=== PATIENT | female | born 2000 | race Caucasian/White ===

== ENCOUNTER 2022-01-20 10:32 | Emergency (ER) | payer OTHER, SELFPAY ==
[2022-01-20 11:13] VITALS: BP 124/81; PULSE 79; RESP 17; TEMP 36.6; O2SAT 99; BMI 20.9
--- NOTE | 2022-01-20 13:32 | ED.NECK ---
HPI - Neck Pain/Injury General Chief Complaint: Neck Pain/Injury Stated Complaint: passed out and hit head /neck is super stiff Time Seen by Provider: 01/20/22 13:32 Mode of arrival: Ambulatory History of Present Illness HPI Narrative: This is a healthy 21-year-old female who states she is had multiple syncopal episodes after seeing needles in the past. She was changing out her belly button ring and when she was watching to do the point he metal end looked like a needle and made her feel like she needed to pass out. She laid down flat she thought all of her symptoms had resolved she stood up quickly and then passed out. Patient states she hit the left side of her neck on the hard bed frame of her [employer] bed. She states otherwise she is felt fine since then this occurred last night but she is had persistent pain in on the left side into her region. Patient has not had any more syncopal episodes. No numbness, tingling or weakness, no midline pain, she is increased pain particularly rotation to the left less so to the right. Denies any weakness in extremities. No loss of bowel or bladder control. No fevers, no chest pain, no shortness of breath, no nausea or vomiting. She felt a little dizzy afterwards. She denies medical issues otherwise, no daily medications. Allergic to amoxicillin. Related Data Home Medications Medication Instructions Recorded Confirmed No Known Home Medications 01/20/22 01/20/22 Allergies Allergy/AdvReac Type Severity Reaction Status Date / Time amoxicillin Allergy Verified 01/20/22 11:16 Review of Systems Review of Systems ROS Unobtainable: All systems reviewed & are unremarkable except as noted in HPI and below Patient History Social History Smoking Status: Never smoker Smoking Status: Never smoker alcohol intake frequency: other Substance Use Type: does not use Exam Narrative Exam Narrative: GEN: Patient appears in mild distress. HEAD: No evidence of trauma, no raccoon/Rowe sign. NECK: Nontender, painless range of motion, trachea midline Negative Nexus criteria, there is no midline line tenderness, distracting injury, altered mental status, neuro deficit, recent EtOH. EYES: PERRLA, EOMI ENT: External inspection normal, trachea is midline, no hemotypanum, Nares are clear, no septal hematoma, no dental or oral injury, airway is normal and with normal occlusion, No bony tenderness RESP: Chest is nontender and has symmetric movement, no ecchymosis, breath sounds are normal no crackles, wheezes or rales CVS: Heart sounds are normal, no murmur noted, No JVD. ABG/GI: Nontender, soft, normal bowel sounds, no distention, no organomegaly, pelvic rock is negative NEURO: Oriented AOx3, neuro is grossly intact, sensation and motor is normal all 4 extremities moving, cranial nerves II through XII are intact, GCS is 15 PSYCH: Normal mood and affect SKIN: Intact, warm and dry, no crepitus and without decubitus BACK: No CVA tenderness, no vertebral tenderness, no step-off's, no crepitus, patient has some mild tenderness the lateral paraspinal muscle trapezius, she is slightly decreased range of motion on the left but is able to turn her to 45?, she can use on the right. EXT: Atraumatic, hips are nontender, no pedal edema, normal color and temperature, normal range of motion of extremities with normal tendon exam, 2+ pulses in all four extremities Initial Vital Signs Initial Vital Signs: Vital Signs Temperature 97.9 F 01/20/22 11:13 Pulse Rate 79 01/20/22 11:13 Respiratory Rate 17 01/20/22 11:13 Blood Pressure 124/81 01/20/22 11:13 Pulse Oximetry 99 01/20/22 11:13 Oxygen Delivery Method 01/20/22 11:13 Course Orders Ordered: ED Orders 01/20/22 11:33 EKG-12 Lead Stat Vital Signs Vital signs: Vital Signs - 8 hr 01/20/22 11:13 Temperature 97.9 F Pulse Rate 79 Respiratory Rate 17 Blood Pressure 124/81 Pulse Oximetry 99 Oxygen Delivery Method Room Air MDM - Neck Pain/Injury ECG Data Attestation: I personally reviewed and interpreted this ECG as follows: Prior ECG tracings: not available for review Interpretation: Sinus rhythm sinus arrhythmia, inverted T-wave in 3 and AVF. No elevation, rate of 86 CA 150 QRS is 74 QTC of 426. MDM Narrative Medical decision making narrative: This is a 21-year-old female who had syncopal episode after seeing what looked to her like a needle while changing out her belly button piercing she is had this happen multiple times in the past. EKG showed possible T-wave inversion in 3 AVF. She has left neck pain that is muscular in nature with no midline cervical tenderness and is nexus criteria negative. Discharge Plan Departure Patient Disposition: Home Clinical Impression: Strain of neck muscle, Syncope Activity Restrictions/Additional Instructions: You appear to have a cervical strain the left side of your neck. You may take Tylenol up to a 1000 mg every 6 hours and/or ibuprofen up to 800 mg every 8 hours. Warm heat, moist compresses or hot showers may be helpful. Please return for rapidly worsening symptoms, new numbness, tingling or weakness, loss of bowel or bladder control, recurrent passing out, new chest pain or shortness of breath, persistent vomiting or other new or concerning symptoms. Prescriptions: No Action No Known Home Medications Visit Report Forms: Patient Portal/API
== END 2022-01-20 13:46 | disposition home or self-care (01) ==
PROVIDERS: Emergency Provider Emergency Medicine
DX: S16.1XXA Strain of muscle, fascia and tendon at neck level, initial encounter (principal); R55 Syncope and collapse
CPT/HCPCS: 93005; 93010; 99281; 99283